=== PATIENT | female | born 1980 | race Caucasian/White ===

== ENCOUNTER 2019-03-05 10:55 | Day surgery (SDC) | payer OTHER ==
[2019-03-05] MEDS ORDERED: PROPOFOL 10 MG/ML VIAL IV ONE (10:56)
[2019-03-05] MEDS ORDERED: FENTANYL PF 100MCG/2ML VIAL IV ONE (10:56)
[2019-03-05] MEDS ORDERED: LIDOCAINE 2% MDV (20MG/ML) 20ML VIAL IV ONE (10:56)
--- NOTE | 2019-03-06 08:10 | Operative Note ---
OPERATION: ESOPHAGOGASTRODUODENOSCOPY with biopsy. PREOPERATIVE DIAGNOSIS: Chronic heartburn. POSTOPERATIVE DIAGNOSES: 1. Irregular Z line. 2. Small hiatal hernia. 3. GERD. PROCEDURE: After informed consent was obtained from the patient, she was placed in the left lateral decubitus position in the endoscopy suite, sedated and monitored by the department of anesthesia. Once sedated, a well-lubricated TKM750 gastroscope was placed in the posterior oropharynx under direct visualization and passed to the proximal esophagus. The endoscope was advanced through the proximal, mid, and distal esophagus. The GE junction was slightly irregular. There was a very small hiatal hernia. The subdiaphragmatic stomach demonstrated normal distensibility, normal rugal folds. The body, antrum, pylorus, duodenal bulb, and sweep were unremarkable. J-turn views of the proximal stomach were unrevealing. The endoscope was then straightened. Again the hiatal hernia was observed. Biopsies were obtained from the irregular portion of the squamocolumnar border. The endoscope was then removed from the patient with no new findings noted. RECOMMENDATIONS: I would suggest the patient continue her PPI. Further recommendations will be made once tissue histology is available. As always, thank you for allowing me to participate in the healthcare of your patients. BLANCA
== END 2019-03-05 12:05 | disposition home or self-care (01) ==
LOC: HOP 10:55
PROVIDERS: ATTEND Internal Medicine Gastroenterology
DX: R12 Heartburn (principal); K21.0 Gastro-esophageal reflux disease with esophagitis; K44.9 Diaphragmatic hernia without obstruction or gangrene; K31.89 Other diseases of stomach and duodenum
CPT/HCPCS: 43239; 00731; J3010